=== PATIENT | female | born 1965 | race African-American/Black ===

== ENCOUNTER 2024-10-20 13:03 | Inpatient (IN) | payer OTHER ==
[~2024-10-20] VITALS: Ht 170.2 cm; Wt 99.3 kg
[2024-10-20 14:13] LABS: BASOPHILS % 0.4 % (0.0-2.0); EOSINOPHILS % 0.9 % (0.0-5.0); HEMATOCRIT. 38.8 % (36.0-48.0); HEMOGLOBIN. 12.6 g/dL (12.0-16.0); LYMPHOCYTES % 41.8 % (20.0-50.0); MEAN CORPUSCULAR HEMOGLOBIN 29.3 pg (28.0-32.0); MEAN CORPUSCULAR HGB CONC 32.6 g/dL (31.0-37.0); MEAN CORPUSCULAR VOLUME 89.9 fL (81.0-99.0); MEAN PLATELET VOLUME 9.3 fl (7.4-10.4); NEUTROPHILS % 50.9 % (40.0-76.0); PLATELET 163 x1000/uL (130-400); RED BLOOD CELL COUNT 4.32 mill/uL (4.2-5.4); RED CELL DISTRIBUTION WIDTH 13.4 % (11.6-14.6); WHITE BLOOD COUNT 6.9 x1000/uL (4.5-11.0)
[2024-10-20 14:17] LABS: CLARITY URINE CLEAR (CLEAR); COLOR URINE YELLOW (YELLOW); GLUCOSE URINE NEGATIVE (NEGATIVE); KETONES URINE NEGATIVE (NEGATIVE); NITRITE URINE NEGATIVE (NEGATIVE); OCCULT BLOOD URINE 1+ (NEGATIVE); PH URINE 7.5 (4.5-8.0); PROTEIN URINE NEGATIVE (NEGATIVE)
[2024-10-20 14:18] LABS: LEUKOCYTE ESTERASE URINE NEGATIVE (NEGATIVE); UROBILINOGEN URINE 0.2 E.U./dL (0.2-1.0)
[2024-10-20 14:21] LABS: CHLORIDE 106 mEq/L (98-107); POTASSIUM 3.4 mEq/L (3.5-5.1); SODIUM 140 mEq/L (136-145)
[2024-10-20 14:22] LABS: CARBON DIOXIDE 29 mEq/L (21-32)
[2024-10-20 14:27] LABS: CREATININE 0.8 mg/dL (0.6-1.0); GLUCOSE 110 mg/dL (70-105); UREA NITROGEN BLOOD 7 mg/dL (9-23)
[2024-10-20 14:28] LABS: TROPONIN I HIGH SENSITIVITY 26 ng/L (3.0-34)
[2024-10-20 14:29] LABS: ALANINE AMINOTRANSFERASE 21 IU/L (10-49); ALBUMIN 3.8 g/dL (3.2-4.8); ASPARTATE AMINOTRANSFERASE 21 IU/L (<34); BILIRUBIN DIRECT 0.2 mg/dL (<=3.0); BILIRUBIN TOTAL 0.7 mg/dL (0.1-1.0); PROTEIN TOTAL 6.5 g/dL (6.0-8.3)
[2024-10-20 14:38] LABS: D-DIMER 0.97 mg/L FEU (<0.50); INR 0.9; PROTHROMBIN TIME 10.4 sec (9.6-11.0)
[2024-10-20 14:39] LABS: BACTERIA URINE 1+; SQUAMOUS EPITHELIAL CELL URINE 1+ /lpf (RARE/1+); WBC URINE 0-2 /hpf (0-2); YEAST URINE NONE SEEN
[2024-10-20 17:09] LABS: TROPONIN I HIGH SENSITIVITY 36 ng/L (3.0-34)
[2024-10-20] MEDS ORDERED: ENOXAPARIN 120MG/0.8ML SYR SUBCUT NR (18:24)
[2024-10-20] MEDS: ASPIRIN 325MG EC TABLET PO NR (18:29)
[2024-10-20] MEDS: PROPRANOLOL HCL 10MG TABLET PO NR (18:34)
[2024-10-20] MEDS: ENOXAPARIN 100MG/ML SYR SUBCUT NR (18:36)
[2024-10-20] MEDS ORDERED: ONDANSETRON HCL 4MG/2ML INJ IV PRN (21:30)
[2024-10-20] MEDS ORDERED: NITROGLYCERIN 0.4MG TABLET SL SL PRN (21:30)
[2024-10-20] MEDS ORDERED: GUAIFENESIN 200MG/10ML SUGAR FREE UDC PO PRN (21:30)
[2024-10-20] MEDS ORDERED: DOCUSATE SODIUM 100MG CAPSULE PO PRN (21:30)
[2024-10-20] MEDS ORDERED: ACETAMINOPHEN 325MG TABLET PO PRN (21:30)
[2024-10-20] MEDS ORDERED: CLONIDINE 0.1MG TABLET PO PRN (21:30)
[2024-10-20] MEDS: POTASSIUM CHLORIDE 20MEQ TABLET SR PO NR (21:57)
[2024-10-20] MEDS: PANTOPRAZOLE 40MG DR TABLET PO NR (21:57)
[2024-10-20] MEDS ORDERED: IPRATROPIUM/ALBUTEROL 0.5-3(2.5)MG/3ML NEB HHN PRN (22:00)
[2024-10-20] MEDS ORDERED: PROPRANOLOL HCL 10MG TABLET PO PRN (22:00)
[2024-10-20 22:11] LABS: PHOSPHORUS 3.2 mg/dL (2.5-4.9)
[2024-10-20 22:14] LABS: T4 FREE 1.61 ng/dL (0.89-1.76)
[2024-10-20] MEDS: CELECOXIB 100MG CAPSULE PO SCH (22:24)
[2024-10-20 22:27] LABS: THYROID STIMULATING HORMONE 1.11 uIU/mL (0.55-4.78)
[2024-10-20 23:23] LABS: TROPONIN I HIGH SENSITIVITY 34 ng/L (3.0-34)
[2024-10-20] MEDS: IOHEXOL-350 100 ML BOTTLE ONE (23:33)
[2024-10-21] MEDS: LORAZEPAM 0.5MG TABLET PO PRN (03:20)
[2024-10-21] MEDS: ACETAMINOPHEN 325MG TABLET PO PRN (03:20)
[2024-10-21 06:14] LABS: BASOPHILS % 0.6 % (0.0-2.0); EOSINOPHILS % 2.2 % (0.0-5.0); HEMATOCRIT. 39.6 % (36.0-48.0); HEMOGLOBIN. 12.9 g/dL (12.0-16.0); LYMPHOCYTES % 46.7 % (20.0-50.0); MEAN CORPUSCULAR HEMOGLOBIN 29.5 pg (28.0-32.0); MEAN CORPUSCULAR HGB CONC 32.6 g/dL (31.0-37.0); MEAN CORPUSCULAR VOLUME 90.6 fL (81.0-99.0); MEAN PLATELET VOLUME 8.9 fl (7.4-10.4); MONOCYTES % 5.9 % (2.0-8.0); NEUTROPHILS % 44.6 % (40.0-76.0); PLATELET 168 x1000/uL (130-400); RED BLOOD CELL COUNT 4.37 mill/uL (4.2-5.4); RED CELL DISTRIBUTION WIDTH 13.4 % (11.6-14.6); WHITE BLOOD COUNT 7.2 x1000/uL (4.5-11.0)
[2024-10-21 06:19] LABS: CHLORIDE 108 mEq/L (98-107); POTASSIUM 3.9 mEq/L (3.5-5.1); SODIUM 140 mEq/L (136-145)
[2024-10-21 06:20] LABS: CALCIUM 8.9 mg/dL (8.7-10.4); CARBON DIOXIDE 30 mEq/L (21-32)
[2024-10-21 06:22] LABS: TROPONIN I HIGH SENSITIVITY 33 ng/L (3.0-34)
[2024-10-21 06:25] LABS: CREATININE 0.9 mg/dL (0.6-1.0); GLUCOSE 95 mg/dL (70-105); UREA NITROGEN BLOOD 8 mg/dL (9-23)
[2024-10-21 08:30] VITALS: BP 152/91; PULSE 69; RESP 18; TEMP 36.6; O2SAT 97
[2024-10-21] MEDS: ENOXAPARIN 30MG/0.3ML SYR SUBCUT SCH (09:40)
[2024-10-21] MEDS: PANTOPRAZOLE 40MG DR TABLET PO SCH (09:41)
[2024-10-21] MEDS: ASPIRIN 81MG TABLET PO SCH (09:41)
[2024-10-21] MEDS: LOSARTAN 50 MG TABLET PO SCH (09:41)
[2024-10-21 10:15] VITALS: BP 152/91; PULSE 63; RESP 15; TEMP 36.6
[2024-10-21 12:00] VITALS: BP 141/85; PULSE 57; RESP 18; TEMP 36.7; O2SAT 97
[2024-10-21] MEDS ORDERED: LOSA50TA41 PO (13:22)
[2024-10-21] MEDS ORDERED: PROP10TA10 PO (13:22)
[2024-10-21] MEDS ORDERED: ASPI-1160 PO (13:22)
[2024-10-21] MEDS ORDERED: CELE100C PO (13:22)
[2024-10-21] MEDS ORDERED: PANT40TA51 PO (13:22)
[2024-10-21] MEDS ORDERED: ATOR20TA PO (13:22)
[2024-10-21 13:56] VITALS: BP 141/85; PULSE 57; TEMP 98; O2SAT 97
[2024-10-21] MEDS ORDERED: ATORVASTATIN CALCIUM 20MG TABLET PO SCH (21:00)
== END 2024-10-21 15:10 | disposition home or self-care (01) | DRG 282 ==
LOC: ER 13:03 → MICUSO 20:10 → EDBEDREQ 20:18 → EDBEDREQTM 20:18 → 3WST 10-21 08:56
PROVIDERS: ADMIT Hospitalist; ATTEND Hospitalist
DX: I21.4 Non-ST elevation (NSTEMI) myocardial infarction (principal); E87.6 Hypokalemia; I50.9 Heart failure, unspecified; I11.0 Hypertensive heart disease with heart failure; M79.7 Fibromyalgia; F41.0 Panic disorder [episodic paroxysmal anxiety]; J45.909 Unspecified asthma, uncomplicated; G62.9 Polyneuropathy, unspecified; E06.3 Autoimmune thyroiditis; E78.00 Pure hypercholesterolemia, unspecified; Z79.82 Long term (current) use of aspirin; Z79.899 Other long term (current) drug therapy; Z90.49 Acquired absence of other specified parts of digestive tract
CPT/HCPCS: 36415; 71045; 71275; 80048; 80076; 81003; 83036; 83735; 83880; 84100; 84439; 84443; 84484; 85025; 85379; 85651; 93005; J1650; Q9967